=== PATIENT | female | born 1940 | race Caucasian/White ===

== ENCOUNTER 2023-02-12 12:23 | Emergency (ER) | payer MEDICARE, SELFPAY ==
[2023-02-12 12:31] VITALS: BP 155/41; PULSE 63; RESP 16; TEMP 36.4; O2SAT 99
[2023-02-12 15:50] VITALS: BP 115/38; PULSE 82; RESP 18; O2SAT 100
--- NOTE | 2023-02-12 16:11 | ED.EPISTAXIS ---
HPI - Epistaxis General Chief complaint: Epistaxis Stated complaint: nose bleed Time Seen by Provider: 02/12/23 16:11 Source: patient and family Limitations: no limitations History of Present Illness HPI Narrative: This is an 82 yo female who presents with epistaxis from the right nare. 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 She has had recurrent nosebleeds previously, last year in the left naris requiring cauterization by Dr Luciano HOUSTON. She has had 3 episodes in the right naris. Bleeding began at approximately 0915 while seated in the [employer]. Denies any fall/trauma. Denies digital trauma. Has been using her humdifier at the house to reduce chance of bleeding. Related Data Home Medications Medication Instructions Recorded Confirmed acetaminophen 500 mg capsule 500 mg PO Q6H PRN 02/02/22 02/02/22 ascorbic acid (vitamin C) 500 mg mg PO 02/02/22 02/02/22 capsule atorvastatin 40 mg tablet 40 mg PO QHS 02/02/22 02/02/22 blood sugar diagnostic 02/02/22 02/02/22 camphor-menthol 0.5 %-0.5 % lotion 1 applic topical TID 02/02/22 02/02/22 clopidogrel 75 mg tablet 75 mg PO DAILY 02/02/22 02/02/22 diphenoxylate-atropine 2.5 5 ml PO TID 02/02/22 02/02/22 mg-0.025 mg/5 mL oral liquid ferrous sulfate 300 mg (60 mg 150 mg PO DAILY 02/02/22 02/02/22 iron)/5 mL oral liquid furosemide 20 mg tablet 20 mg PO QAM 02/02/22 02/02/22 gabapentin 400 mg capsule 400 mg PO BID 02/02/22 02/02/22 glucagon 1 mg solution for 1 mg subcut Q20M PRN 02/02/22 02/02/22 injection (GlucaGen HypoKit) insulin admin supplies (InPen (for 02/02/22 02/02/22 Novolog or Fiasp) [place] subcutaneous) insulin glargine 100 unit/mL (3 10 unit subcut QPM 02/02/22 02/02/22 mL) subcutaneous pen levothyroxine 88 mcg capsule 88 mcg PO DAILY 02/02/22 02/02/22 lisinopril 2.5 mg tablet 2.5 mg PO DAILY 02/02/22 02/02/22 metformin 500 mg tablet 500 mg PO DAILY 02/02/22 02/02/22 metoprolol succinate 25 mg 12.5 mg PO DAILY 02/02/22 02/02/22 tablet,extended release 24 hr nitroglycerin 0.4 mg sublingual 0.4 mg sublingual Q5M PRN 02/02/22 02/02/22 tablet nystatin 100,000 unit/gram topical 1 applic topical BID 02/02/22 02/02/22 powder oxybutynin chloride 5 mg tablet 5 mg PO BID 02/02/22 02/02/22 pen needle, diabetic 31 gauge x 02/02/22 02/02/2207/28 (1st Tier Unifine Pentips Plus) Allergies Allergy/AdvReac Type Severity Reaction Status Date / Time tramadol Allergy Unknown Unknown Verified 02/12/23 16:43 [facility] Past Medical History Medical History (Updated 02/13/23 @ 10:32 by Oly Shore MD) Heart attack Left-sided epistaxis Pacemaker Stroke Surgical History Surgical History Aortic valve replaced Family History Family History Father Heart disease Mother Diabetes mellitus Sibling Diabetes mellitus Heart disease Other Diabetes mellitus Social History Social History Smoking status: Never smoker Alcohol intake: never Substance use: never Exam Narrative: GENERAL: Well-appearing, well-nourished, and in no acute distress. HEAD: Normocephalic, atraumatic. EYES: EOMI. Non icteric, non-injected ENT: Mucous membranes moist. Evidence of blood in posterior oropharynx. Left naris clear. Right naris with evidence of epistaxis but without polyp, septal hematoma, or localized area of bleeding. NECK: Supple. CHEST: Speaking in full sentences. No respiratory distress. HEART: Regular rate. ABDOMEN: Soft, nondistended,. EXTREMITIES: Normal range of motion. No edema. SKIN: Warm, dry, no rash. NEURO: No focal deficits. Alert and oriented x3. PSYCH: Normal mood and affect. Course Vital Signs Vital signs: Vital Signs Temperature 97.6 F 02/12/23 12:31 Pulse Rate 63 02/12/23 12:
[2023-02-12] MEDS: OXYMETAZOLINE HCL 0.05% NAS 15 ML BTL (*BKC) 1 SPRAY NASAL (16:40)
[2023-02-12 17:05] LABS: Hematocrit 32.4 % (37.0-47.0); Hemoglobin 10.1 g/dL (12.0-15.0); Immature Platelet Fraction Pct 9.6 % (0.9-11.2); Mean Corpuscular HGB Conc 31.2 g/dl (32-36); Mean Corpuscular Hemoglobin 30.1 pg (26-34); Mean Corpuscular Volume 96.7 fl (80-100); Mean Platelet Volume 11.7 fl (7.4-10.4); Platelet Count Result 80 k/mm3 (150-375); Red Blood Count 3.35 M/mm3 (4.2-5.4); White Blood Count 7.6 K/mm3 (4.5-10.0)
[2023-02-12 17:15] LABS: Anion Gap 12 mmol/L (8-16); Blood Urea Nitrogen 23 mg/dL (7-17); Calcium 9.5 mg/dL (8.4-10.2); Carbon Dioxide 27 mmol/L (22-30); Chloride 101 mmol/L (98-107); Estimated Glomerular Filt Rate > 60; Glucose 171 mg/dL (65-110); Potassium 4.6 mmol/L (3.4-5.0); Sodium 140 mmol/L (137-145)
[2023-02-12 17:35] LABS: INR 1.2; Partial Thromboplastin Time 28.8 SECONDS (22.3-36.8); Prothrombin Time 15.3 Seconds (11.1-14.7)
[2023-02-12 17:39] LABS: Basophils Absolute Manual 0.15 K/mm3 (0.0-0.1); Basophils Percent Manual 2 % (0-1); Lymphocytes Absolute Manual 2.05 K/mm3 (1.1-4.5); Monocytes Absolute Manual 0.45 K/mm3 (0.1-0.90); Monocytes Percent Manual 6 % (3-9); Neutrophils Percent Manual 65 % (46-73); Platelet Estimate Decreased (Adequate); Total Cells Counted 100
[2023-02-12 17:40] LABS: Schistocytes Rare (NORMAL)
[2023-02-12 17:41] LABS: Anisocytosis 1+ (NORMAL); Hypochromasia 1+ (NORMAL); Large Platelets Present
== END 2023-02-12 18:41 | disposition home or self-care (01) ==
PROVIDERS: Emergency Medicine; Emergency Provider Student in an Organized Health Care Education/Training Program; PCP Internal Medicine
DX: R04.0 Epistaxis (principal); I25.2 Old myocardial infarction; Z95.5 Presence of coronary angioplasty implant and graft; Z95.0 Presence of cardiac pacemaker; Z86.73 Personal history of transient ischemic attack (TIA), and cerebral infarction without residual deficits; Z79.82 Long term (current) use of aspirin; Z79.02 Long term (current) use of antithrombotics/antiplatelets; Z79.4 Long term (current) use of insulin
CPT/HCPCS: 30901; 36415; 80048; 85025; 85055; 85610; 85730; 86850; 86900; 86901; 99283; A9270